=== PATIENT | male | born 1950 | race Caucasian/White ===

== ENCOUNTER 2021-08-13 12:53 | Inpatient (IN) | payer MEDICAID, OTHER ==
[~2021-08-13] VITALS: Ht 165.1 cm; Wt 77.1 kg
[2021-08-13] MEDS ORDERED: VANCOMYCIN 1 G PREMIX 200 ML IV ONE (14:00)
[2021-08-13] MEDS ORDERED: PIPERACILLIN/TAZ 3.375G PREMIX 50 ML IV ONE (14:00)
[2021-08-13] MEDS ORDERED: SODIUM CHLORIDE 0.9% 1000ML BAG (SEPSIS BOLUS) IV ONE (14:00)
[2021-08-13 15:55] LABS: COLOR URINE YELLOW (YELLOW); KETONES URINE NEGATIVE (NEGATIVE); LEUKOCYTE ESTERASE URINE 3+ (NEGATIVE); NITRITE URINE NEGATIVE (NEGATIVE); OCCULT BLOOD URINE 2+ (NEGATIVE); PROTEIN URINE 4+ (NEGATIVE); SPECIFIC GRAVITY URINE 1.023 (1.005-1.030)
[2021-08-13 16:06] LABS: CLARITY URINE CLOUDY (CLEAR)
[2021-08-13 16:43] LABS: CHLORIDE 121 mEq/L (98-107)
[2021-08-13 16:44] LABS: HEMOGLOBIN. 7.2 g/dL (14.0-18.0); MEAN CORPUSCULAR HEMOGLOBIN 23.9 pg (28.0-32.0); MEAN CORPUSCULAR VOLUME 76.7 fL (80.0-94.0); MEAN PLATELET VOLUME 8.2 fl (7.4-10.4); PLATELET 435 x1000/uL (130-400); RED BLOOD CELL COUNT 3.01 mill/uL (4.7-6.1); RED CELL DISTRIBUTION WIDTH 22.4 % (11.6-14.6)
[2021-08-13 16:45] LABS: INR 1.4; PROTHROMBIN TIME 14.7 sec (9.6-11.0)
[2021-08-13 17:21] LABS: NUCLEATED RED BLOOD CELLS 1 /100 WBC; PLATELET ESTIMATE INCREASED
[2021-08-13] MEDS ORDERED: AZITHROMYCIN 500 MG in DEXT 5% WATER 250 ML IV SCH (17:30)
[2021-08-13] MEDS ORDERED: KCL 10MEQ/50ML PREMIX 50 ML IV ONE (17:30)
[2021-08-13] MEDS ORDERED: HEPARIN 5000 UNITS/ML VIAL IV PRN ×2 (20:30)
[2021-08-13] MEDS ORDERED: HEPARIN 5000 UNITS/ML VIAL IV SCH (20:30)
[2021-08-13] MEDS ORDERED: SODIUM CHLORIDE 0.45% 1,000 ML IV ONE (20:30)
[2021-08-13] MEDS ORDERED: HEPARIN 25,000 UNITS PREMIX 250 ML IV PRN (20:30)
[2021-08-13] MEDS ORDERED: HYDROCODONE/ACETAMINOPHEN 10/325MG TABLET PO PRN (21:15)
[2021-08-13] MEDS ORDERED: LORAZEPAM 2MG/ML CPJ IV PRN (21:15)
[2021-08-13] MEDS ORDERED: ONDANSETRON HCL 4MG/2ML INJ IV PRN (21:15)
[2021-08-13] MEDS ORDERED: HYDROCODONE/ACETAMINOPHEN 5/325MG TABLET PO PRN (21:15)
[2021-08-13] MEDS ORDERED: DOCUSATE SODIUM 100MG CAPSULE PO PRN (21:15)
[2021-08-13] MEDS ORDERED: SODIUM CHLORIDE 0.9% 1,000 ML IV SCH (21:45)
[2021-08-13] MEDS ORDERED: CEFTRIAXONE 1,000 MG in DEXTROSE 5% WATER 50 ML IV SCH (22:30)
[2021-08-13 23:00] VITALS: BP 113/43
[2021-08-13 23:50] LABS: CREATINE KINASE 74 IU/L (39-308)
[2021-08-13 23:51] LABS: CREATINE KINASE MB FRACTION < 1.0 ng/mL (0.5-3.6)
[2021-08-14] VITALS: BP 113/40
[2021-08-14] MEDS ORDERED: DEXTROSE 50% WATER 50ML SYRINGE IV PRN (00:15)
[2021-08-14] MEDS: ENOXAPARIN 40MG/0.4ML SYR SUBCUT SCH ×2 (00:19→09:37)
[2021-08-14] MEDS ORDERED: CEFTRIAXONE 1,000 MG in DEXTROSE 5% WATER 50 ML IV SCH (01:00)
[2021-08-14] MEDS: INSULIN LISPRO 100 UNITS/ML SUBCUT SCH ×5 (02:09→21:35)
[2021-08-14] MEDS ORDERED: IPRATROPIUM BROMIDE (0.02%) 0.5MG/2.5ML NEB HHN PRN (03:45)
[2021-08-14 04:00] VITALS: BP 109/31
[2021-08-14] MEDS ORDERED: ATOR40TA70 PO (04:51)
[2021-08-14] MEDS ORDERED: TACR30OI5 GT (04:51)
[2021-08-14] MEDS ORDERED: XALAO EACHEYE (04:51)
[2021-08-14] MEDS ORDERED: LOSA25TA26 GT (04:51)
[2021-08-14] MEDS ORDERED: LANTUSUD SUBCUT (04:51)
[2021-08-14] MEDS ORDERED: NETA2.5D EACHEYE (04:51)
[2021-08-14] MEDS ORDERED: BRIM5DRO6 EACHEYE (04:51)
[2021-08-14] MEDS ORDERED: POLY250017 PEG (04:51)
[2021-08-14] MEDS ORDERED: FAMO20TA8 GT (04:51)
[2021-08-14] MEDS ORDERED: ACET-2708 PO (04:51)
[2021-08-14] MEDS ORDERED: DORZ10DR12 EACHEYE (04:51)
[2021-08-14] MEDS ORDERED: TERA1CAP53 GT (04:51)
[2021-08-14] MEDS ORDERED: PRED-276 GT (04:51)
[2021-08-14] MEDS ORDERED: INSU100V37 SQ (04:51)
[2021-08-14] MEDS ORDERED: RIVA20TA GT (04:51)
[2021-08-14] MEDS ORDERED: FURO40TA5 GT (04:51)
[2021-08-14] MEDS ORDERED: CARV3.1242 PO (04:51)
[2021-08-14] MEDS ORDERED: LACT10SO3 PEG (04:51)
[2021-08-14] MEDS ORDERED: SENN-178 GT (04:51)
[2021-08-14] MEDS ORDERED: TAMS-11 GT (04:51)
[2021-08-14] MEDS ORDERED: AMLO10TA80 PO (04:51)
[2021-08-14 05:53] LABS: MEAN CORPUSCULAR HEMOGLOBIN 23.8 pg (28.0-32.0); MEAN CORPUSCULAR VOLUME 78.5 fL (80.0-94.0); MEAN PLATELET VOLUME 8.7 fl (7.4-10.4); PLATELET 381 x1000/uL (130-400); RED BLOOD CELL COUNT 2.56 mill/uL (4.7-6.1); RED CELL DISTRIBUTION WIDTH 22.1 % (11.6-14.6)
[2021-08-14 06:01] LABS: CHLORIDE 123 mEq/L (98-107)
[2021-08-14 06:08] LABS: PHOSPHORUS 4.3 mg/dL (2.5-4.9)
[2021-08-14 06:12] LABS: CREATINE KINASE 76 IU/L (39-308)
[2021-08-14 06:14] LABS: CREATINE KINASE MB FRACTION 2.5 ng/mL (0.5-3.6)
[2021-08-14 06:21] LABS: HEMATOCRIT. 20.1 % (42.0-52.0); HEMOGLOBIN. 6.1 g/dL (14.0-18.0)
[2021-08-14] MEDS: BLOOD SUGAR DIAGNOSTIC STRIP TEST SCH ×4 (07:20→20:33)
[2021-08-14 08:00] VITALS: BP 97/33
[2021-08-14] MEDS ORDERED: METHYLPREDNISOLONE SOD SUCC 40 MG/ML VIAL IV SCH (09:00)
[2021-08-14] MEDS: DEXTROSE 5% WATER 1,000 ML IV SCH ×2 (09:04→19:14)
[2021-08-14 12:00] VITALS: BP 110/40
[2021-08-14] MEDS ORDERED: POTASSIUM CHLORIDE INJ 40 MEQ in DEXT 5% WATER 250 ML IV SCH (13:00)
[2021-08-14 16:00] VITALS: BP 113/36
[2021-08-14] MEDS: AZITHROMYCIN 500 MG in DEXT 5% WATER 250 ML IV SCH (16:24)
[2021-08-14 20:00] VITALS: BP 120/53
[2021-08-14 20:06] LABS: PLATELET ESTIMATE NORMAL
[2021-08-14] MEDS: CEFTRIAXONE 1,000 MG in DEXTROSE 5% WATER 50 ML IV SCH (20:16)
[2021-08-14] MEDS: LATANOPROST 0.005% OPHTH DROPS 2.5ML BOTHEYE SCH (20:16)
[2021-08-14] MEDS ORDERED: NALOXONE HCL 0.4MG/ML VIAL IV PRN (20:45)
[2021-08-15] VITALS (10 sets, daily range): BP systolic 109–142; BP diastolic 34–84
[2021-08-15] MEDS: DEXTROSE 5% WATER 1,000 ML IV SCH ×3 (06:37→21:32)
[2021-08-15] MEDS: BLOOD SUGAR DIAGNOSTIC STRIP TEST SCH ×4 (07:20→21:23)
[2021-08-15] MEDS: INSULIN LISPRO 100 UNITS/ML SUBCUT SCH ×4 (08:24→21:25)
[2021-08-15] MEDS: BRIMONIDINE 0.2% OPHTH DROPS 5ML BOTHEYE SCH ×2 (10:12→17:44)
[2021-08-15] MEDS: INSULIN GLARGINE UD 100 UNITS/ML SYR SUBCUT SCH ×2 (10:12→21:26)
[2021-08-15 11:55] LABS: HEMATOCRIT. 30.1 % (42.0-52.0); HEMOGLOBIN. 9.1 g/dL (14.0-18.0); MEAN CORPUSCULAR HEMOGLOBIN 25.2 pg (28.0-32.0); MEAN CORPUSCULAR VOLUME 83.3 fL (80.0-94.0); MEAN PLATELET VOLUME 8.7 fl (7.4-10.4); PLATELET 459 x1000/uL (130-400); RED BLOOD CELL COUNT 3.62 mill/uL (4.7-6.1); RED CELL DISTRIBUTION WIDTH 23.4 % (11.6-14.6)
[2021-08-15] MEDS ORDERED: LIDOCAINE HCL 1% 20ML VIAL (Pyxis) INJ ONE (12:35)
[2021-08-15] MEDS: AZITHROMYCIN 500 MG in DEXT 5% WATER 250 ML IV SCH (15:15)
[2021-08-15] MEDS: CEFTRIAXONE 1,000 MG in DEXTROSE 5% WATER 50 ML IV SCH (20:50)
[2021-08-15] MEDS: LATANOPROST 0.005% OPHTH DROPS 2.5ML BOTHEYE SCH (21:30)
[2021-08-15 23:17] LABS: PLATELET ESTIMATE INCREASED
[2021-08-16] VITALS: BP 147/69
[2021-08-16 04:00] VITALS: BP 141/58
[2021-08-16 07:04] LABS: HEMATOCRIT. 25.2 % (42.0-52.0); HEMOGLOBIN. 8.2 g/dL (14.0-18.0); MEAN CORPUSCULAR HEMOGLOBIN 25.5 pg (28.0-32.0); MEAN CORPUSCULAR VOLUME 78.8 fL (80.0-94.0); MEAN PLATELET VOLUME 8.1 fl (7.4-10.4); PLATELET 402 x1000/uL (130-400); RED CELL DISTRIBUTION WIDTH 23.7 % (11.6-14.6)
[2021-08-16] MEDS: BLOOD SUGAR DIAGNOSTIC STRIP TEST SCH ×4 (07:20→20:50)
[2021-08-16 08:00] VITALS: BP 151/49
[2021-08-16] MEDS: INSULIN LISPRO 100 UNITS/ML SUBCUT SCH ×4 (08:28→20:51)
[2021-08-16] MEDS: DEXTROSE 5% WATER 1,000 ML IV SCH ×2 (10:15→20:50)
[2021-08-16] MEDS: INSULIN GLARGINE UD 100 UNITS/ML SYR SUBCUT SCH ×2 (11:21→20:51)
[2021-08-16] MEDS: BRIMONIDINE 0.2% OPHTH DROPS 5ML BOTHEYE SCH ×2 (12:08→19:39)
[2021-08-16] MEDS: AZITHROMYCIN 500 MG in DEXT 5% WATER 250 ML IV SCH (16:21)
[2021-08-16 18:00] LABS: PLATELET ESTIMATE INCREASED
[2021-08-16 20:00] VITALS: BP_SYST 14; BP_SYST 140; BP_DIAS 38
[2021-08-16] MEDS: LATANOPROST 0.005% OPHTH DROPS 2.5ML BOTHEYE SCH (20:50)
[2021-08-16] MEDS: CEFTRIAXONE 1,000 MG in DEXTROSE 5% WATER 50 ML IV SCH (20:50)
[2021-08-17] VITALS (36 sets, daily range): BP systolic 52–149; BP diastolic 26–70
[2021-08-17] MEDS: DEXT 5%/0.9% NACL 1,000 ML IV SCH ×2 (00:42→08:33)
[2021-08-17] MEDS: INSULIN LISPRO 100 UNITS/ML SUBCUT SCH ×4 (06:32→17:31)
[2021-08-17] MEDS: BLOOD SUGAR DIAGNOSTIC STRIP TEST SCH ×3 (06:32→17:26)
[2021-08-17] MEDS ORDERED: INFLUENZA VACCINE 05/PF 0.5 ML SYRINGE IM ONE (08:00)
[2021-08-17] MEDS: BRIMONIDINE 0.2% OPHTH DROPS 5ML BOTHEYE SCH ×2 (08:34→17:49)
[2021-08-17 10:16] LABS: HEMATOCRIT. 31.8 % (42.0-52.0); HEMOGLOBIN. 9.4 g/dL (14.0-18.0); MEAN CORPUSCULAR HEMOGLOBIN 25.8 pg (28.0-32.0); MEAN PLATELET VOLUME 8.3 fl (7.4-10.4); PLATELET 274 x1000/uL (130-400); RED BLOOD CELL COUNT 3.66 mill/uL (4.7-6.1); RED CELL DISTRIBUTION WIDTH 24.2 % (11.6-14.6)
[2021-08-17] MEDS: INSULIN GLARGINE UD 100 UNITS/ML SYR SUBCUT SCH ×2 (11:10→22:19)
[2021-08-17] MEDS ORDERED: POTASSIUM CHLORIDE INJ 40 MEQ in DEXT 5% WATER 250 ML IV SCH (13:00)
[2021-08-17] MEDS: AZITHROMYCIN 500 MG in DEXT 5% WATER 250 ML IV SCH (15:00)
[2021-08-17] MEDS ORDERED: SODIUM CHLORIDE 0.45% 500 ML IV SCH (16:15)
[2021-08-17] MEDS: DOPAMINE 400MG/250ML PREMIX 250 ML IV PRN (16:30)
[2021-08-17 16:48] LABS: BG BASE EXCESS -2.6 mmol/L (-2.0-2.0); BG CARBOXYHEMOGLOBIN 0.2 % (0.5-1.5); BG DEOXYHEMOGLOBIN 2.9 % (0.0-5.0); BG FRACTION INSPIRED OXYGEN 99.8; BG HCO3 ACT 21.9 mmol/L (22.0-26.0); BG METHEMOGLOBIN 0.1 % (0.0-1.5); BG OXYGEN SATURATION 97.1 % (92.0-98.5); BG OXYHEMOGLOBIN 96.8 % (94.0-97.0); BG PCO2 36.1 mmHg (35.0-45.0); BG SAMPLE SITE RIGHT RADIAL; BG TOTAL HEMOGLOBIN 8.5 g/dL (12.0-18.0); BG VENT MODE MASK - NRB
[2021-08-17] MEDS: DEXTROSE 5% WATER 1,000 ML IV SCH (16:52)
[2021-08-17 17:59] LABS: NUCLEATED RED BLOOD CELLS 1 /100 WBC
[2021-08-17 18:00] LABS: PLATELET ESTIMATE NORMAL
[2021-08-17 18:01] LABS: HEMATOCRIT 26.6 % (42.0-52.0); HEMOGLOBIN 8.7 g/dL (14.0-18.0); MEAN CORPUSCULAR HEMOGLOBIN 26.2 pg (28.0-32.0); MEAN CORPUSCULAR VOLUME 79.9 fL (80.0-94.0); PLATELET 282 x1000/uL (130-400); RED BLOOD CELL COUNT 3.33 mill/uL (4.7-6.1); RED CELL DISTRIBUTION WIDTH 23.7 % (11.6-14.6)
[2021-08-17] MEDS: METRONIDAZOLE 500 MG PREMIX 100 ML IV SCH (18:15)
[2021-08-17] MEDS: LATANOPROST 0.005% OPHTH DROPS 2.5ML BOTHEYE SCH (22:27)
[2021-08-18] VITALS (83 sets, daily range): BP systolic 58–182; BP diastolic 21–93
[2021-08-18] MEDS: CEFTRIAXONE 1,000 MG in DEXTROSE 5% WATER 50 ML IV SCH (00:30)
[2021-08-18] MEDS: BLOOD SUGAR DIAGNOSTIC STRIP TEST SCH ×4 (00:31→17:27)
[2021-08-18] MEDS: METRONIDAZOLE 500 MG PREMIX 100 ML IV SCH ×3 (03:22→18:26)
[2021-08-18] MEDS: NOREPINEPHRINE 8 MG in DEXT 5% WATER 242 ML IV PRN (04:35)
[2021-08-18] MEDS: INSULIN LISPRO 100 UNITS/ML SUBCUT SCH ×4 (06:00→17:29)
[2021-08-18] MEDS: DEXTROSE 5% WATER 1,000 ML IV SCH ×2 (06:18→18:27)
[2021-08-18 06:28] LABS: HEMATOCRIT. 31.1 % (42.0-52.0); HEMOGLOBIN. 10.1 g/dL (14.0-18.0); MEAN CORPUSCULAR HEMOGLOBIN 25.4 pg (28.0-32.0); MEAN PLATELET VOLUME 8.2 fl (7.4-10.4); PLATELET 279 x1000/uL (130-400); RED BLOOD CELL COUNT 3.99 mill/uL (4.7-6.1); RED CELL DISTRIBUTION WIDTH 23.7 % (11.6-14.6)
[2021-08-18 07:52] LABS: NUCLEATED RED BLOOD CELLS 2 /100 WBC
[2021-08-18 07:53] LABS: PLATELET ESTIMATE NORMAL
[2021-08-18] MEDS: ASPIRIN 81MG TABLET PO SCH (09:00)
[2021-08-18] MEDS: BRIMONIDINE 0.2% OPHTH DROPS 5ML BOTHEYE SCH ×2 (10:23→17:27)
[2021-08-18] MEDS: INSULIN GLARGINE UD 100 UNITS/ML SYR SUBCUT SCH ×2 (10:23→21:50)
[2021-08-18] MEDS: MORPHINE SULFATE 2 MG/ML CPJ (NOT FOR IM USE) IV PRN (10:30)
[2021-08-18] MEDS ORDERED: FUROSEMIDE 40MG/4ML VIAL IVP NR (10:30)
[2021-08-18] MEDS: DOPAMINE 400MG/250ML PREMIX 250 ML IV PRN ×2 (11:07→18:00)
[2021-08-18] MEDS ORDERED: POTASSIUM CHLORIDE INJ 40 MEQ in DEXT 5% WATER 250 ML IV SCH (11:30)
[2021-08-18] MEDS ORDERED: VANCOMYCIN 1500MG in DEXTROSE 5% WATER 250ML IV NR (15:00)
[2021-08-18] MEDS: AZITHROMYCIN 500 MG in DEXT 5% WATER 250 ML IV SCH (15:00)
[2021-08-18] MEDS: CEFEPIME 1,000 MG in DEXTROSE 5% WATER 50 ML IV SCH (20:01)
[2021-08-18] MEDS: LATANOPROST 0.005% OPHTH DROPS 2.5ML BOTHEYE SCH (21:49)
[2021-08-19] VITALS (83 sets, daily range): BP systolic 89–188; BP diastolic 51–79
[2021-08-19] MEDS: BLOOD SUGAR DIAGNOSTIC STRIP TEST SCH ×4 (00:37→18:07)
[2021-08-19] MEDS: INSULIN LISPRO 100 UNITS/ML SUBCUT SCH ×4 (00:41→18:00)
[2021-08-19] MEDS: DOPAMINE 400MG/250ML PREMIX 250 ML IV PRN ×3 (01:25→18:11)
[2021-08-19] MEDS: CEFEPIME 1,000 MG in DEXTROSE 5% WATER 50 ML IV SCH ×3 (02:30→18:07)
[2021-08-19] MEDS: METRONIDAZOLE 500 MG PREMIX 100 ML IV SCH ×3 (03:14→18:07)
[2021-08-19 06:53] LABS: HEMATOCRIT. 27.4 % (42.0-52.0); HEMOGLOBIN. 8.9 g/dL (14.0-18.0); MEAN CORPUSCULAR VOLUME 76.9 fL (80.0-94.0); MEAN PLATELET VOLUME 7.9 fl (7.4-10.4); PLATELET 181 x1000/uL (130-400); RED BLOOD CELL COUNT 3.56 mill/uL (4.7-6.1); RED CELL DISTRIBUTION WIDTH 24.1 % (11.6-14.6)
[2021-08-19] MEDS: DEXTROSE 5% WATER 1,000 ML IV SCH ×2 (07:10→21:11)
[2021-08-19] MEDS: NOREPINEPHRINE 8 MG in DEXT 5% WATER 242 ML IV PRN (07:13)
[2021-08-19] MEDS: ASPIRIN 81MG TABLET PO SCH (09:00)
[2021-08-19] MEDS: METHYLPREDNISOLONE SOD SUCC 40 MG/ML VIAL IV SCH (10:37)
[2021-08-19] MEDS: INSULIN GLARGINE UD 100 UNITS/ML SYR SUBCUT SCH ×2 (10:38→22:04)
[2021-08-19] MEDS: BRIMONIDINE 0.2% OPHTH DROPS 5ML BOTHEYE SCH ×2 (10:39→18:06)
[2021-08-19 10:50] LABS: BG BASE EXCESS -4.4 mmol/L (-2.0-2.0); BG CARBOXYHEMOGLOBIN 0.3 % (0.5-1.5); BG DEOXYHEMOGLOBIN 4.3 % (0.0-5.0); BG FRACTION INSPIRED OXYGEN 35; BG HCO3 ACT 18.3 mmol/L (22.0-26.0); BG OXYGEN SATURATION 95.7 % (92.0-98.5); BG OXYHEMOGLOBIN 95.4 % (94.0-97.0); BG PCO2 26.2 mmHg (35.0-45.0); BG PH 7.462 (7.350-7.450); BG PO2 89.9 mmHg (75.0-100.0); BG SAMPLE SITE LEFT RADIAL; BG TOTAL HEMOGLOBIN 9.9 g/dL (12.0-18.0); BG VENT MODE MASK - BIPAP
[2021-08-19] MEDS ORDERED: LIDOCAINE HCL 1% 20ML VIAL (Pyxis) INJ ONE (11:09)
[2021-08-19] MEDS ORDERED: BUPIVACAINE HCL/PF 0.5% (5MG/ML) 10ML ONE (11:09)
[2021-08-19] MEDS ORDERED: POLYMYXIN B SULFATE 500000 UNITS/VIAL ONE (11:10)
[2021-08-19] MEDS ORDERED: ROCURONIUM BROMIDE 10MG/ML VIAL 5ML IV ONE (12:09)
[2021-08-19] MEDS ORDERED: ALBUMIN HUMAN 25GM/100ML (25%) IV ONE (12:16)
[2021-08-19] MEDS ORDERED: CALCIUM CHLORIDE 1GM/10ML SYR IV ONE (12:16)
[2021-08-19] MEDS ORDERED: SODIUM BICARBONATE 8.4% 1 MEQ/ML 50ML SYR IV ONE ×2 (12:16→12:17)
[2021-08-19] MEDS ORDERED: PROPOFOL 10MG/ML 100ML 100 ML IV SCH (13:15)
[2021-08-19] MEDS ORDERED: HYDROMORPHONE HCL/PF 2MG/ML CPJ IV PRN (13:15)
[2021-08-19 14:19] LABS: PLATELET ESTIMATE NORMAL
[2021-08-19] MEDS ORDERED: VANCOMYCIN 1 G PREMIX 200 ML IV SCH (15:00)
[2021-08-19] MEDS: VANCOMYCIN 750 MG PREMIX 150 ML IV SCH (15:47)
[2021-08-19] MEDS ORDERED: TACROLIMUS 1MG CAPSULE PO SCH (17:00)
[2021-08-19 17:32] LABS: BG BASE EXCESS -5.6 mmol/L (-2.0-2.0); BG CARBOXYHEMOGLOBIN 0.7 % (0.5-1.5); BG DEOXYHEMOGLOBIN 7.9 % (0.0-5.0); BG FRACTION INSPIRED OXYGEN 70; BG METHEMOGLOBIN 0.2 % (0.0-1.5); BG OXYHEMOGLOBIN 91.2 % (94.0-97.0); BG PCO2 33.4 mmHg (35.0-45.0); BG PH 7.373 (7.350-7.450); BG PO2 68.6 mmHg (75.0-100.0); BG TOTAL HEMOGLOBIN 7.3 g/dL (12.0-18.0); BG VENT MODE VENT - AC
[2021-08-19] MEDS ORDERED: MYCOPHENOLATE MOFETIL 500MG TABLET PO SCH (21:00)
[2021-08-19] MEDS: LATANOPROST 0.005% OPHTH DROPS 2.5ML BOTHEYE SCH (21:11)
[2021-08-19] MEDS ORDERED: DOCUSATE SODIUM SUGAR FREE 100MG/10ML UDC NG PRN (22:00)
[2021-08-20] VITALS (95 sets, daily range): BP systolic 80–227; BP diastolic 40–97
[2021-08-20] MEDS: BLOOD SUGAR DIAGNOSTIC STRIP TEST SCH ×4 (00:49→17:44)
[2021-08-20] MEDS: INSULIN LISPRO 100 UNITS/ML SUBCUT SCH ×4 (00:52→18:00)
[2021-08-20] MEDS: CEFEPIME 1,000 MG in DEXTROSE 5% WATER 50 ML IV SCH ×3 (02:26→17:00)
[2021-08-20] MEDS: METRONIDAZOLE 500 MG PREMIX 100 ML IV SCH ×3 (03:04→21:30)
[2021-08-20 06:51] LABS: HEMATOCRIT. 21.2 % (42.0-52.0); MEAN CORPUSCULAR HEMOGLOBIN 25.7 pg (28.0-32.0); MEAN CORPUSCULAR VOLUME 78.5 fL (80.0-94.0); MEAN PLATELET VOLUME 7.8 fl (7.4-10.4); PLATELET 114 x1000/uL (130-400)
[2021-08-20 07:04] LABS: HEMOGLOBIN. 6.9 g/dL (14.0-18.0)
[2021-08-20 09:27] LABS: BG BASE EXCESS -4.4 mmol/L (-2.0-2.0); BG CARBOXYHEMOGLOBIN 0.9 % (0.5-1.5); BG DEOXYHEMOGLOBIN 1.5 % (0.0-5.0); BG FRACTION INSPIRED OXYGEN 80; BG HCO3 ACT 19.2 mmol/L (22.0-26.0); BG METHEMOGLOBIN 0.3 % (0.0-1.5); BG OXYGEN SATURATION 98.5 % (92.0-98.5); BG OXYHEMOGLOBIN 97.3 % (94.0-97.0); BG PCO2 29.1 mmHg (35.0-45.0); BG PH 7.438 (7.350-7.450); BG PO2 132.5 mmHg (75.0-100.0); BG SAMPLE SITE RIGHT RADIAL; BG VENT MODE VENT - AC
[2021-08-20] MEDS: BRIMONIDINE 0.2% OPHTH DROPS 5ML BOTHEYE SCH ×2 (09:53→17:44)
[2021-08-20] MEDS: MYCOPHENOLATE MOFETIL 200MG/ML ORAL SUSP NG SCH ×2 (09:54→21:32)
[2021-08-20] MEDS: TACROLIMUS 1MG/PACKET NG SCH ×2 (09:54→17:43)
[2021-08-20] MEDS: METHYLPREDNISOLONE SOD SUCC 40 MG/ML VIAL IV SCH (09:55)
[2021-08-20] MEDS: ASPIRIN 81MG TABLET PO SCH (09:55)
[2021-08-20] MEDS: INSULIN GLARGINE UD 100 UNITS/ML SYR SUBCUT SCH ×2 (09:56→22:45)
[2021-08-20] MEDS: DEXT 5%/0.45% NACL 1000ML 1,000 ML IV SCH (10:36)
[2021-08-20 10:59] LABS: PLATELET ESTIMATE SLIGHTLY DECREASED
[2021-08-20] MEDS: DOPAMINE 400MG/250ML PREMIX 250 ML IV PRN (15:00)
[2021-08-20] MEDS: VANCOMYCIN 750 MG PREMIX 150 ML IV SCH (15:06)
[2021-08-20] MEDS ORDERED: NALOXONE HCL 0.4MG/ML VIAL IV PRN (17:45)
[2021-08-20] MEDS: LATANOPROST 0.005% OPHTH DROPS 2.5ML BOTHEYE SCH (21:31)
[2021-08-20] MEDS: MORPHINE SULFATE 2 MG/ML CPJ (NOT FOR IM USE) IV PRN (23:07)
[2021-08-21] VITALS (97 sets, daily range): BP systolic 56–164; BP diastolic 37–106
[2021-08-21] MEDS: BLOOD SUGAR DIAGNOSTIC STRIP TEST SCH ×4 (00:14→18:10)
[2021-08-21] MEDS: DEXT 5%/0.45% NACL 1000ML 1,000 ML IV SCH ×2 (00:17→14:46)
[2021-08-21] MEDS: CEFEPIME 1,000 MG in DEXTROSE 5% WATER 50 ML IV SCH ×3 (02:22→18:37)
[2021-08-21] MEDS: METRONIDAZOLE 500 MG PREMIX 100 ML IV SCH ×3 (03:32→18:37)
[2021-08-21] MEDS: INSULIN LISPRO 100 UNITS/ML SUBCUT SCH ×4 (06:00→18:00)
[2021-08-21 07:37] LABS: HEMATOCRIT. 25.4 % (42.0-52.0); HEMOGLOBIN. 8.4 g/dL (14.0-18.0); MEAN CORPUSCULAR VOLUME 78.5 fL (80.0-94.0); MEAN PLATELET VOLUME 8.3 fl (7.4-10.4); PLATELET 106 x1000/uL (130-400); RED BLOOD CELL COUNT 3.24 mill/uL (4.7-6.1); RED CELL DISTRIBUTION WIDTH 23.3 % (11.6-14.6)
[2021-08-21] MEDS: MYCOPHENOLATE MOFETIL 200MG/ML ORAL SUSP NG SCH ×2 (09:10→21:05)
[2021-08-21] MEDS: METHYLPREDNISOLONE SOD SUCC 40 MG/ML VIAL IV SCH (09:10)
[2021-08-21] MEDS: TACROLIMUS 1MG/PACKET NG SCH ×2 (09:10→18:37)
[2021-08-21] MEDS: BRIMONIDINE 0.2% OPHTH DROPS 5ML BOTHEYE SCH ×2 (09:11→18:37)
[2021-08-21 09:17] LABS: BG BASE EXCESS -9.6 mmol/L (-2.0-2.0); BG CARBOXYHEMOGLOBIN 0.5 % (0.5-1.5); BG DEOXYHEMOGLOBIN 20.4 % (0.0-5.0); BG FRACTION INSPIRED OXYGEN 70; BG HCO3 ACT 14.8 mmol/L (22.0-26.0); BG METHEMOGLOBIN 0.1 % (0.0-1.5); BG OXYGEN SATURATION 79.5 % (92.0-98.5); BG PCO2 27.2 mmHg (35.0-45.0); BG PH 7.354 (7.350-7.450); BG PO2 44.8 mmHg (75.0-100.0); BG SAMPLE SITE RIGHT RADIAL; BG TOTAL HEMOGLOBIN 8.5 g/dL (12.0-18.0); BG VENT MODE VENT - AC
[2021-08-21] MEDS: DOPAMINE 400MG/250ML PREMIX 250 ML IV PRN (09:21)
[2021-08-21] MEDS: NOREPINEPHRINE 8 MG in DEXT 5% WATER 242 ML IV PRN (09:22)
[2021-08-21] MEDS: INSULIN GLARGINE UD 100 UNITS/ML SYR SUBCUT SCH (09:43)
[2021-08-21 10:17] LABS: BG BASE EXCESS -9.2 mmol/L (-2.0-2.0); BG CARBOXYHEMOGLOBIN 0.3 % (0.5-1.5); BG DEOXYHEMOGLOBIN 2.3 % (0.0-5.0); BG FRACTION INSPIRED OXYGEN 70; BG HCO3 ACT 14.3 mmol/L (22.0-26.0); BG METHEMOGLOBIN 0.9 % (0.0-1.5); BG OXYGEN SATURATION 97.7 % (92.0-98.5); BG OXYHEMOGLOBIN 96.5 % (94.0-97.0); BG PCO2 23.6 mmHg (35.0-45.0); BG PO2 132.6 mmHg (75.0-100.0); BG SAMPLE SITE RIGHT RADIAL; BG VENT MODE VENT - AC
[2021-08-21 10:47] LABS: PLATELET ESTIMATE DECREASED
[2021-08-21] MEDS ORDERED: DIATR MEGLU/DIATRIZOATE SOLN 30ML PO SCH (19:00)
[2021-08-21] MEDS: LATANOPROST 0.005% OPHTH DROPS 2.5ML BOTHEYE SCH (21:06)
[2021-08-22] VITALS (95 sets, daily range): BP systolic 82–171; BP diastolic 31–111
[2021-08-22] MEDS: CLINDAMYCIN 300 MG in DEXTROSE 5% WATER 50 ML IV SCH ×4 (00:26→22:22)
[2021-08-22] MEDS: BLOOD SUGAR DIAGNOSTIC STRIP TEST SCH ×4 (00:26→18:05)
[2021-08-22] MEDS: LINEZOLID 600 MG PREMIX 300 ML IV SCH ×2 (00:26→11:28)
[2021-08-22] MEDS: DEXT 5%/0.45% NACL 1000ML 1,000 ML IV SCH (02:25)
[2021-08-22] MEDS: CEFEPIME 1,000 MG in DEXTROSE 5% WATER 50 ML IV SCH ×3 (02:26→22:22)
[2021-08-22] MEDS: METRONIDAZOLE 500 MG PREMIX 100 ML IV SCH ×3 (03:26→19:38)
[2021-08-22 05:47] LABS: HEMATOCRIT. 26.6 % (42.0-52.0); HEMOGLOBIN. 8.8 g/dL (14.0-18.0); MEAN CORPUSCULAR HEMOGLOBIN 25.9 pg (28.0-32.0); MEAN CORPUSCULAR VOLUME 78.6 fL (80.0-94.0); MEAN PLATELET VOLUME 7.8 fl (7.4-10.4); PLATELET 107 x1000/uL (130-400); RED BLOOD CELL COUNT 3.39 mill/uL (4.7-6.1); RED CELL DISTRIBUTION WIDTH 23.6 % (11.6-14.6)
[2021-08-22] MEDS: INSULIN LISPRO 100 UNITS/ML SUBCUT SCH ×4 (06:46→18:18)
[2021-08-22] MEDS: MYCOPHENOLATE MOFETIL 200MG/ML ORAL SUSP NG SCH ×2 (08:47→22:22)
[2021-08-22] MEDS: BRIMONIDINE 0.2% OPHTH DROPS 5ML BOTHEYE SCH ×2 (08:47→18:17)
[2021-08-22] MEDS: TACROLIMUS 1MG/PACKET NG SCH ×2 (08:47→18:16)
[2021-08-22] MEDS: METHYLPREDNISOLONE SOD SUCC 40 MG/ML VIAL IV SCH (08:47)
[2021-08-22 09:26] LABS: BG BASE EXCESS -9.6 mmol/L (-2.0-2.0); BG CARBOXYHEMOGLOBIN 0.3 % (0.5-1.5); BG DEOXYHEMOGLOBIN 2.1 % (0.0-5.0); BG FRACTION INSPIRED OXYGEN 70; BG HCO3 ACT 12.5 mmol/L (22.0-26.0); BG METHEMOGLOBIN 0.3 % (0.0-1.5); BG OXYGEN SATURATION 97.9 % (92.0-98.5); BG OXYHEMOGLOBIN 97.3 % (94.0-97.0); BG PCO2 18.1 mmHg (35.0-45.0); BG PH 7.457 (7.350-7.450); BG SAMPLE SITE RIGHT RADIAL; BG TOTAL HEMOGLOBIN 9.7 g/dL (12.0-18.0); BG TOTAL RESPIRATORY RATE 30 b/min; BG VENT MODE VENT - AC
[2021-08-22 11:05] LABS: NUCLEATED RED BLOOD CELLS 2 /100 WBC
[2021-08-22 11:06] LABS: PLATELET ESTIMATE SLIGHTLY DECREASED
[2021-08-22] MEDS: SODIUM CHLORIDE 0.9% 1,000 ML IV SCH (12:15)
[2021-08-22] MEDS: DOPAMINE 400MG/250ML PREMIX 250 ML IV PRN (15:00)
[2021-08-22] MEDS ORDERED: FENTANYL CITRATE/PF 2,500 MCG in SODIUM CHLORIDE 0.9% 200 ML IV PRN (15:15)
[2021-08-22] MEDS ORDERED: MIDAZOLAM HCL 100 MG in SODIUM CHLORIDE 0.9% 80 ML IV PRN (15:15)
[2021-08-22] MEDS: PANTOPRAZOLE SODIUM 40 MG/VIAL IV SCH (18:16)
[2021-08-22] MEDS: LATANOPROST 0.005% OPHTH DROPS 2.5ML BOTHEYE SCH (22:22)
[2021-08-23] VITALS (89 sets, daily range): BP systolic 88–132; BP diastolic 40–76
[2021-08-23] MEDS: INSULIN LISPRO 100 UNITS/ML SUBCUT SCH ×5 (01:05→23:16)
[2021-08-23] MEDS: LINEZOLID 600 MG PREMIX 300 ML IV SCH ×3 (01:06→23:16)
[2021-08-23] MEDS: CLINDAMYCIN 300 MG in DEXTROSE 5% WATER 50 ML IV SCH ×3 (05:57→21:48)
[2021-08-23] MEDS: DOPAMINE 400MG/250ML PREMIX 250 ML IV PRN (05:57)
[2021-08-23] MEDS: BLOOD SUGAR DIAGNOSTIC STRIP TEST SCH ×5 (05:58→23:32)
[2021-08-23] MEDS: SODIUM CHLORIDE 0.9% 1,000 ML IV SCH (06:05)
[2021-08-23] MEDS ORDERED: SODIUM BICARBONATE 8.4% 1 MEQ/ML 50ML SYR IV ONE (07:15)
[2021-08-23 07:50] LABS: HEMATOCRIT. 36.2 % (42.0-52.0); HEMOGLOBIN. 10.5 g/dL (14.0-18.0); MEAN CORPUSCULAR HEMOGLOBIN 25.7 pg (28.0-32.0); MEAN CORPUSCULAR VOLUME 88.5 fL (80.0-94.0); MEAN PLATELET VOLUME 7.9 fl (7.4-10.4); PLATELET 79 x1000/uL (130-400); RED BLOOD CELL COUNT 4.09 mill/uL (4.7-6.1); RED CELL DISTRIBUTION WIDTH 24.7 % (11.6-14.6)
[2021-08-23] MEDS ORDERED: LIDOCAINE HCL 1% 30ML VIAL (10MG/ML) ONE (08:21)
[2021-08-23] MEDS: PANTOPRAZOLE SODIUM 40 MG/VIAL IV SCH (10:06)
[2021-08-23] MEDS: CEFEPIME 1,000 MG in DEXTROSE 5% WATER 50 ML IV SCH ×2 (10:06→21:48)
[2021-08-23] MEDS: BRIMONIDINE 0.2% OPHTH DROPS 5ML BOTHEYE SCH ×2 (10:06→17:39)
[2021-08-23] MEDS: METHYLPREDNISOLONE SOD SUCC 40 MG/ML VIAL IV SCH (10:06)
[2021-08-23] MEDS: MYCOPHENOLATE MOFETIL 200MG/ML ORAL SUSP NG SCH ×2 (10:06→21:48)
[2021-08-23] MEDS: SODIUM BICARBONATE 100 MEQ in SODIUM CHLORIDE 0.45% 1,000 ML IV SCH (10:07)
[2021-08-23] MEDS: TACROLIMUS 1MG/PACKET NG SCH ×2 (10:08→17:39)
[2021-08-23 10:59] LABS: BG BASE EXCESS -10.3 mmol/L (-2.0-2.0); BG CARBOXYHEMOGLOBIN 0.3 % (0.5-1.5); BG DEOXYHEMOGLOBIN 1.3 % (0.0-5.0); BG FRACTION INSPIRED OXYGEN 70; BG HCO3 ACT 14.4 mmol/L (22.0-26.0); BG METHEMOGLOBIN 0.2 % (0.0-1.5); BG OXYGEN SATURATION 98.7 % (92.0-98.5); BG OXYHEMOGLOBIN 98.2 % (94.0-97.0); BG PH 7.328 (7.350-7.450); BG PO2 195.4 mmHg (75.0-100.0); BG SAMPLE SITE LEFT RADIAL; BG TOTAL HEMOGLOBIN 10.2 g/dL (12.0-18.0); BG TOTAL RESPIRATORY RATE 14 b/min; BG VENT MODE VENT - AC
[2021-08-23 13:31] LABS: PLATELET ESTIMATE DECREASED
[2021-08-23] MEDS: LATANOPROST 0.005% OPHTH DROPS 2.5ML BOTHEYE SCH (21:47)
[2021-08-24] VITALS (82 sets, daily range): BP systolic 74–140; BP diastolic 36–77
[2021-08-24] MEDS: DOPAMINE 400MG/250ML PREMIX 250 ML IV PRN (03:26)
[2021-08-24] MEDS: BLOOD SUGAR DIAGNOSTIC STRIP TEST SCH ×3 (05:53→18:14)
[2021-08-24] MEDS: CLINDAMYCIN 300 MG in DEXTROSE 5% WATER 50 ML IV SCH ×3 (05:54→21:23)
[2021-08-24] MEDS: INSULIN LISPRO 100 UNITS/ML SUBCUT SCH ×3 (05:55→18:00)
[2021-08-24 06:20] LABS: HEMATOCRIT. 31.5 % (42.0-52.0); HEMOGLOBIN. 9.8 g/dL (14.0-18.0); MEAN CORPUSCULAR HEMOGLOBIN 25.7 pg (28.0-32.0); MEAN CORPUSCULAR VOLUME 82.5 fL (80.0-94.0); PLATELET 74 x1000/uL (130-400); RED BLOOD CELL COUNT 3.82 mill/uL (4.7-6.1)
[2021-08-24 07:57] LABS: PLATELET ESTIMATE DECREASED
[2021-08-24] MEDS: SODIUM BICARBONATE 100 MEQ in SODIUM CHLORIDE 0.45% 1,000 ML IV SCH (08:01)
[2021-08-24] MEDS: TACROLIMUS 1MG/PACKET NG SCH ×2 (08:28→18:14)
[2021-08-24] MEDS: BRIMONIDINE 0.2% OPHTH DROPS 5ML BOTHEYE SCH ×2 (08:28→18:14)
[2021-08-24] MEDS: CEFEPIME 1,000 MG in DEXTROSE 5% WATER 50 ML IV SCH ×2 (08:28→21:23)
[2021-08-24] MEDS: MYCOPHENOLATE MOFETIL 200MG/ML ORAL SUSP NG SCH ×2 (08:29→21:23)
[2021-08-24] MEDS: METHYLPREDNISOLONE SOD SUCC 40 MG/ML VIAL IV SCH (08:29)
[2021-08-24] MEDS: PANTOPRAZOLE SODIUM 40 MG/VIAL IV SCH (08:29)
[2021-08-24 08:58] LABS: BG BASE EXCESS -9.5 mmol/L (-2.0-2.0); BG CARBOXYHEMOGLOBIN 0.1 % (0.5-1.5); BG DEOXYHEMOGLOBIN 1.8 % (0.0-5.0); BG FRACTION INSPIRED OXYGEN 35; BG METHEMOGLOBIN 0.2 % (0.0-1.5); BG OXYGEN SATURATION 98.2 % (92.0-98.5); BG OXYHEMOGLOBIN 97.9 % (94.0-97.0); BG PCO2 19.6 mmHg (35.0-45.0); BG PH 7.438 (7.350-7.450); BG PO2 138.4 mmHg (75.0-100.0); BG SAMPLE SITE RIGHT RADIAL; BG VENT MODE VENT - AC
[2021-08-24] MEDS: LINEZOLID 600 MG PREMIX 300 ML IV SCH (13:46)
[2021-08-24] MEDS: LATANOPROST 0.005% OPHTH DROPS 2.5ML BOTHEYE SCH (21:22)
[2021-08-25] VITALS (95 sets, daily range): BP systolic 69–169; BP diastolic 40–114
[2021-08-25 00:40] LABS: HEPATITIS B SURFACE ANTIGEN NEGATIVE
[2021-08-25] MEDS: INSULIN LISPRO 100 UNITS/ML SUBCUT SCH ×3 (00:47→12:00)
[2021-08-25] MEDS: LINEZOLID 600 MG PREMIX 300 ML IV SCH (00:47)
[2021-08-25] MEDS: DOPAMINE 400MG/250ML PREMIX 250 ML IV PRN (02:21)
[2021-08-25] MEDS: NOREPINEPHRINE 8 MG in DEXT 5% WATER 242 ML IV PRN ×2 (03:14→06:27)
[2021-08-25] MEDS: SODIUM BICARBONATE 100 MEQ in SODIUM CHLORIDE 0.45% 1,000 ML IV SCH (04:31)
[2021-08-25] MEDS: CLINDAMYCIN 300 MG in DEXTROSE 5% WATER 50 ML IV SCH ×2 (05:57→15:04)
[2021-08-25] MEDS: BLOOD SUGAR DIAGNOSTIC STRIP TEST SCH ×3 (05:57→12:00)
[2021-08-25 07:21] LABS: HEMATOCRIT. 33.5 % (42.0-52.0); HEMOGLOBIN. 11.1 g/dL (14.0-18.0); MEAN CORPUSCULAR HEMOGLOBIN 25.2 pg (28.0-32.0); MEAN CORPUSCULAR VOLUME 75.7 fL (80.0-94.0); MEAN PLATELET VOLUME 8.3 fl (7.4-10.4); PLATELET 154 x1000/uL (130-400); RED BLOOD CELL COUNT 4.43 mill/uL (4.7-6.1); RED CELL DISTRIBUTION WIDTH 24.9 % (11.6-14.6)
[2021-08-25] MEDS: TACROLIMUS 1MG/PACKET NG SCH (08:15)
[2021-08-25] MEDS: METHYLPREDNISOLONE SOD SUCC 40 MG/ML VIAL IV SCH (08:15)
[2021-08-25] MEDS: MYCOPHENOLATE MOFETIL 200MG/ML ORAL SUSP NG SCH (08:15)
[2021-08-25] MEDS: PANTOPRAZOLE SODIUM 40 MG/VIAL IV SCH (08:15)
[2021-08-25] MEDS: BRIMONIDINE 0.2% OPHTH DROPS 5ML BOTHEYE SCH (08:15)
[2021-08-25] MEDS: CEFEPIME 1,000 MG in DEXTROSE 5% WATER 50 ML IV SCH (08:16)
[2021-08-25 08:37] LABS: NUCLEATED RED BLOOD CELLS 3 /100 WBC
[2021-08-25 08:38] LABS: PLATELET ESTIMATE NORMAL
[2021-08-25 09:14] LABS: BG BASE EXCESS -5.2 mmol/L (-2.0-2.0); BG DEOXYHEMOGLOBIN 4.1 % (0.0-5.0); BG FRACTION INSPIRED OXYGEN 35; BG HCO3 ACT 16.3 mmol/L (22.0-26.0); BG METHEMOGLOBIN 0.3 % (0.0-1.5); BG OXYGEN SATURATION 95.9 % (92.0-98.5); BG OXYHEMOGLOBIN 95.6 % (94.0-97.0); BG PCO2 21.3 mmHg (35.0-45.0); BG PH 7.501 (7.350-7.450); BG PO2 80.8 mmHg (75.0-100.0); BG SAMPLE SITE LEFT RADIAL; BG TOTAL HEMOGLOBIN 11.2 g/dL (12.0-18.0); BG VENT MODE VENT - AC
[2021-08-25] MEDS ORDERED: PHENYLEPHRINE 100 MG in DEXT 5% WATER 240 ML IV PRN (10:30)
[2021-08-25] MEDS ORDERED: LINEZOLID 600 MG PREMIX 300 ML IV SCH (12:30)
[2021-08-25] MEDS ORDERED: MORPHINE SULFATE 250 MG in DEXT 5% WATER 225 ML IV PRN (17:15)
[2021-08-26] VITALS: BP 68/48
[2021-08-26 00:30] VITALS: BP 68/37
[2021-08-26 01:00] VITALS: BP 65/33
[2021-08-26 01:33] VITALS: BP 60/43
[2021-08-26 02:15] VITALS: BP 64/36
== END 2021-08-26 08:16 | DRG 720 ==
LOC: ER 13:06 → MICUSO 15:00 → EDBEDREQ 15:13 → 3WST 20:31 → MICUSO 21:49 → 6WST 22:07 → CVICU 08-17 16:20
PROVIDERS: ADMIT Internal Medicine Nephrology; ATTEND Internal Medicine Nephrology
PROC: 02HV33Z Insertion of Infusion Device into Superior Vena Cava, Percutaneous Approach (ICD-10-PCS; 2021-08-15)
PROC: B548ZZA Ultrasonography of Superior Vena Cava, Guidance (ICD-10-PCS; 2021-08-15)
PROC: B5181ZA Fluoroscopy of Superior Vena Cava using Low Osmolar Contrast, Guidance (ICD-10-PCS; 2021-08-15)
PROC: 30233N1 Transfusion of Nonautologous Red Blood Cells into Peripheral Vein, Percutaneous Approach (ICD-10-PCS; 2021-08-15)
PROC: 5A09357 Assistance with Respiratory Ventilation, Less than 24 Consecutive Hours, Continuous Positive Airway Pressure (ICD-10-PCS; 2021-08-18)
PROC: 5A1955Z Respiratory Ventilation, Greater than 96 Consecutive Hours (ICD-10-PCS; principal; 2021-08-19)
PROC: 0JB80ZZ Excision of Abdomen Subcutaneous Tissue and Fascia, Open Approach (ICD-10-PCS; 2021-08-19)
PROC: 0BH17EZ Insertion of Endotracheal Airway into Trachea, Via Natural or Artificial Opening (ICD-10-PCS; 2021-08-19)
PROC: B54CZZA Ultrasonography of Left Lower Extremity Veins, Guidance (ICD-10-PCS; 2021-08-23)
PROC: 06HY33Z Insertion of Infusion Device into Lower Vein, Percutaneous Approach (ICD-10-PCS; 2021-08-23)
DX: A41.53 Sepsis due to Serratia (principal); N17.0 Acute kidney failure with tubular necrosis; J96.01 Acute respiratory failure with hypoxia; R65.21 Severe sepsis with septic shock; G92.8 Other toxic encephalopathy; E43 Unspecified severe protein-calorie malnutrition; T86.19 Other complication of kidney transplant; J18.9 Pneumonia, unspecified organism; Z66 Do not resuscitate; E87.0 Hyperosmolality and hypernatremia; E11.65 Type 2 diabetes mellitus with hyperglycemia; E87.6 Hypokalemia; K94.21 Gastrostomy hemorrhage; I50.30 Unspecified diastolic (congestive) heart failure; D50.9 Iron deficiency anemia, unspecified; E11.22 Type 2 diabetes mellitus with diabetic chronic kidney disease; E11.51 Type 2 diabetes mellitus with diabetic peripheral angiopathy without gangrene; E87.8 Other disorders of electrolyte and fluid balance, not elsewhere classified; I13.2 Hypertensive heart and chronic kidney disease with heart failure and with stage 5 chronic kidney disease, or end stage renal disease; I25.10 Atherosclerotic heart disease of native coronary artery without angina pectoris; I82.C11 Acute embolism and thrombosis of right internal jugular vein; K94.23 Gastrostomy malfunction; L02.211 Cutaneous abscess of abdominal wall; N18.6 End stage renal disease; N36.0 Urethral fistula; N40.0 Benign prostatic hyperplasia without lower urinary tract symptoms; Z20.822 Contact with and (suspected) exposure to COVID-19; Y83.0 Surgical operation with transplant of whole organ as the cause of abnormal reaction of the patient, or of later complication, without mention of misadventure at the time of the procedure; L89.616 Pressure-induced deep tissue damage of right heel; L89.516 Pressure-induced deep tissue damage of right ankle; N49.2 Inflammatory disorders of scrotum; Z60.2 Problems related to living alone; L89.896 Pressure-induced deep tissue damage of other site; R13.12 Dysphagia, oropharyngeal phase; Z88.8 Allergy status to other drugs, medicaments and biological substances; Z79.01 Long term (current) use of anticoagulants; Z79.4 Long term (current) use of insulin; Z86.73 Personal history of transient ischemic attack (TIA), and cerebral infarction without residual deficits; Z79.899 Other long term (current) drug therapy
CPT/HCPCS: 36415; 36556; 36600; 71045; 74176; 76700; 76770; 76937; 77001; 80048; 80053; 80202; 81003; 82010; 82375; 82550; 82553; 82805; 82962; 83036; 83605; 83735; 83880; 84100; 84145; 84478; 84484; 85018; 85025; 85027; 86705; 86709; 86803; 86850; 86900; 86920; 87070; 87075; 87077; 87186; 87340; 87426; 90686; 93005; 93306; 93923; 93970; 93971; 94003; 94660; 97162; 99291; A6261; C1752; C1769; C9113; J0456; J0692; J0696; J1265; J1650; J1815; J1940; J2020; J2250; J2270; J2370; J2543; J2920; J3010; J3370; J3480; J3490; J7030; J7040; J7042; J7050; J7060; J7070; J7507; J7517; P9016; P9047